=== PATIENT | male | born 1955 | race Caucasian/White ===

== ENCOUNTER → 2017-01-01 | Outpatient (CLI) | payer BC ==
--- NOTE | 2017-01-01 16:34 | RADRPT ---
PROCEDURE: Right knee radiographs. CLINICAL INDICATION: Right knee pain. TECHNIQUE: Four views. Weight bearing. Frontal, lateral, oblique, and patellar view. COMPARISON: No prior studies are available for comparison. FINDINGS: There has been previous anterior cruciate ligament repair with hardware noted in the distal femur an d proximal tibia. There is no fracture or dislocation. There is no joint effusion. There are moderate degenerative changes with osteophytes noted and lateral joint compartment narrowi ng. There is no lytic or blastic lesion. IMPRESSION: 1. Prior ACL repair. 2. Moderate degenerative change. RPTAT: QQ .Clovis Steiner MD, MD Date Time Electronically viewed and signed by .Clovis Steiner MD, on 01/01/2017 16:34 .R/
== END | disposition home or self-care (01) ==
LOC: HKI 14:22
PROVIDERS: ATTEND Orthopaedic Surgery
DX: M25.561 Pain in right knee (principal); M17.11 Unilateral primary osteoarthritis, right knee
CPT/HCPCS: 20610; G0463; J1030